=== PATIENT | male | born 1990 | race Caucasian/White ===

== ENCOUNTER 2018-12-11 14:00 | Emergency (ER) | payer MEDICARE, SELFPAY ==
[2018-12-11 14:02] VITALS: BP 118/89; PULSE 77; RESP 18; TEMP 36.7; O2SAT 95; BMI 20.7
[2018-12-11 14:15] VITALS: TEMP 36.7
--- NOTE | 2018-12-11 14:47 | ED.RN ---
talked to dr muñiz about mental health procedures and that he did not have to take off his clothes
[2018-12-11] MEDS: Ziprasidone IM 20 MG/ML VIAL IM (15:03)
[2018-12-11 15:05] LABS: Absolute Lymphocyte Count 2.28 X10^3/ul (0.83-4.51); Absolute Neutrophil Count 6.6 X10^3/uL (2.0-7.7); Anion Gap 4 (5-15); BUN 12 mg/dL (7-18); BUN/Creat Ratio 13.7 RATIO (10-20); Basophil# 0.03 X10^3/uL; Basophil% 0.3 % (0-1); Calcium,Total 8.6 mg/dL (8.5-10.1); Chloride 109 mmol/L (98-107); Creatinine, Serum 0.87 mg/dL (0.70-1.30); EST Glomerular Filtration Rate 110 mL/min (>60); Eosinophil# 0.17 X10^3/uL; Eosinophils% 1.7 % (0-5); Est Glom Filt Rate - Afr Amer 133 mL/min (>60); Glucose 98 mg/dL (74-106); Hematocrit 46.3 % (40-54); Hemoglobin 15.3 g/dl (13.0-16.5); Lymphocyte # 2.28 X10^3/ul (4.0); Lymphocyte % 23.1 % (19-41); Mean Corpuscular Hgb 31.2 pg (27.0-32.0); Mean Corpuscular Volume 94.3 fL (80-94); Mean Platelet Vol. 10.8 fl (6.2-12.0); Monocyte# 0.79 X10^3/uL; Neutrophil # 6.59 X10^3/uL (2.7-7.7); Neutrophil % 66.8 % (47-70); Platelet Count 245 K/mm3 (150-450); RBC Distribution Width CV 13.7 % (11.6-14.6); RBC Distribution Width SD 47.2 fl (35.1-43.9); Red Blood Count 4.91 M/mm3 (4.6-6.2); Sodium Level 142 mmol/L (136-145); White Blood Count 9.9 K/mm3 (4.4-11.0)
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
[2018-12-11 15:16] VITALS: RESP 14
[2018-12-11 15:17] LABS: POSITIVE COUNT NO; POSITIVE DIFFERENTIAL NO; POSITIVE MORPHOLOGY NO
[2018-12-11 16:01] LABS: Amphetamine Urine VISTA NEGATIVE (<1000 ng/mL); Barbiturate Urine VISTA POSITIVE (< 200 ng/mL); Benzodiazepine Urine VISTA NEGATIVE (< 200 ng/mL); Cocaine Urine VISTA NEGATIVE (< 300 ng/mL); Ecstacy Urine VISTA NEGATIVE (< 500 ng/mL); Methadone Urine VISTA NEGATIVE (< 300 ng/mL); PCP Urine VISTA NEGATIVE (< 25 ng/mL); THC Urine VISTA POSITIVE (< 50 ng/mL); Vista UDS pH Range 6
[2018-12-11 17:00] VITALS: RESP 16
--- NOTE | 2018-12-11 17:07 | NURSING ---
DEREK, CRISIS, AWARE. SHE HAS CHART
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
--- NOTE | 2018-12-11 17:30 | ED.RN ---
Crisis in to see pt. Pt requesting a TV, patient is cooperative and not suicidal so was moved to room 5. Room was preciously stripped for mental health prior to moving patient.
--- NOTE | 2018-12-11 17:45 | CM.ED ---
SOCIAL WORK NOTE CALL TO [facility], SPOKE WITH RN-ABIGAIL. PER ABIGAIL, PT ABLE TO RETURN TO FACILITY. ABIGAIL DOES VOICE CONCERNS WITH PT'S BEHAVIORS AND SAFETY OF STAFF AND OTHER RESIDENTS. ABIGAIL REPORTS PT DID HAVE [facility]TAKE APPOINTMENT AT [facility] IN OCTOB[facility] AND PT'S MOTHER WAS TOLD PT WOULD NOT BE ABLE TO HAVE PSYCHIATRIST APPOINTMENT FOR SEVERAL MONTHS. PER ABIGAIL, [facility] DOES NOT HAVE PSYCH ON STAFF. THIS WORKER TO CALL [facility] TO DISCUSS EXPEDITING PSYCHIATRIST APPOINTMENT. UPDATED DR. GARRETT. CECILIA CHEEK, USER EXPERIENCE DEVELOPER, HOSTESS.
--- NOTE | 2018-12-11 17:54 | ED.VISSUMM ---
- ER Visit Summary Date of Service: 12/11/18 Chief Complaint: [] History of Present Illness: The patient is a 28 M [] Physical Examination: [] Test Results: [] Emergency Department Course and Treatment: [] Treatment Plan: [] Disposition: [] Impression: [] This note was generated with Workshare dictation software. It may contain incorrect words, spelling, and punctuation that were not noted in review of the chart prior to signing ED Disposition - Plan for ED Patient: Disposition: Home or Assisted Living Diagnosis: Traumatic brain injury Instructions: Behavior Changes After Brain Injury Referrals: Janice Sims NP-C [Primary Care Provider] -
--- NOTE | 2018-12-11 17:57 | ED.DCSUM_ITS ---
- ER Visit Summary Date of Service: 12/11/18 Chief Complaint: [] History of Present Illness: The patient is a 28 M [] Physical Examination: [] Test Results: [] Emergency Department Course and Treatment: [] Treatment Plan: [] Disposition: [] Impression: [] This note was generated with [employer] dictation software. It may contain incorrect words, spelling, and punctuation that were not noted in review of the chart prior to signing ED Disposition - Plan for ED Patient: Disposition: Home or Assisted Living Diagnosis: Traumatic brain injury Instructions: Behavior Changes After Brain Injury Referrals: Janice Sims NP-C [Primary Care Provider] -
[2018-12-11 18:00] VITALS: RESP 16
--- NOTE | 2018-12-11 18:00 | CM.ED ---
SOCIAL WORK NOTE CALL TO MAURICE WITH [facility]. DISCUSSED PT'S CASE AND REQUEST FOR PSYCHIATRIST APPOINTMENT TO BE EXPEDITED. MAURICE TO CALL PSYCH SERVICES TOMORROW. REQUESTED MAURICE CALL ABIGAIL AT [facility] TOMORROW TO UPDATE. CECILIA CHEEK, INSURANCE COUNSEL, GUEST RELATIONS REPRESENTATIVE.
--- NOTE | 2018-12-11 18:25 | CM.ED ---
SOCIAL WORK NOTE CALL TO ABIGAIL AT [facility] TO UPDATE PT WILL D/C BACK TO [facility] THIS DAY. INFORMED ABIGAIL THIS WORKER SPOKE WITH MAURICE AT [facility] AND SHE WILL WORK ON MOVING UP PSYCHIATRIST APPOINTMENT. CALL TO PT'S MOTHER, KATHERYN TO UPDATE ON PLAN. KATHERYN IN AGREEMENT. UPDATED DR. GARRETT AND NURSING ON THE ABOVE. PLAN: D/C BACK TO [facility]. CECILIA CHEEK, WELDER PRODUCTION LINE ARC, WEIGHTS AND MEASURES SEALER.
--- NOTE | 2018-12-11 19:16 | ED.RN ---
ATTEMPTED TO CALL [facility] UNABLE TO REACH ANY STAFF. WILL CONTINUE TO TRY
--- NOTE | 2018-12-11 19:45 | CM.ED ---
SOCIAL WORK NOTE ATTEMPTED TO CONTACT [facility] FOR NURSE. [facility] CALLED [facility] NO ANSWER, LEFT VOICEMAIL. CALL TO PT'S MOTHER TO DISCUSS TRANSPORTATION, NO ANSWER, LEFT VOICEMAIL.
--- NOTE | 2018-12-11 19:50 | CM.ED ---
SOCIAL WORK NOTE RECEIVED CALL BACK FROM PT'S MOTHER, KATHERYN. PER KATHERYN, WILL LOOK INTO TRANSPORTATION FOR PT BACK TO FACILITY. KATHERYN REQUESTING THIS WORKER ALSO CONTACT PT'S INSURANCE TO SEE IF THEY CAN PROVIDE TRANSPORT. MOTHER REPORTS PT DOES HAVE [employer] SECONDARY INSURANCE.
[2018-12-11 20:00] VITALS: RESP 18
--- NOTE | 2018-12-11 20:00 | CM.ED ---
SOCIAL WORK NOTE CALL TO [facility] PROVIDE A RIDE. PER WORKER, PT HAS EXHAUSTED HIS TRANSPORTATION BENEFIT AND ARE UNABLE TO ASSIST WITH PT'S TRANSPORTATION NEEDS. CALL TO PT'S MOTHER, KATHERYN TO UPDATE ON THE ABOVE. NO ANSWER, LEFT MESSAGE.
--- NOTE | 2018-12-11 20:07 | CM.ED ---
SOCIAL WORK NOTE NURSING PROVIDE THIS WORKER WITH CONTACT INFORMATION FOR PT'S FRIEND, JORDI. PT REPORTS THEY WILL BE ABLE TO PROVIDE TRANSPORTATION. CALL TO JORDI, NO ANSWER, LEFT MESSAGE.
--- NOTE | 2018-12-11 20:18 | CM.ED ---
SOCIAL WORK NOTE RECEIVED CALL BACK FROM PT'S MOTHER. MOTHER STATES JORDI IS PT'S COUSIN WHO RESIDES IN [place] AND MAY BE ABLE TO ASSIST WITH TRANSPORT NEEDS. INFORMED PT'S MOTHER JORDI PHONE GOES STRAIGHT TO [employer] AND MESSAGE HAS BEEN LEFT BY THIS WORKER. AWAITING CALL BACK AT THIS TIME. PT TO DESK INQUIRING ABOUT TRANSPORTATION. UPDATED PT ON THIS WORKER'S EFFORTS TO FIND TRANSPORT BACK TO FACILITY. CHARGE NURSE REPORTS WILL PROVIDE PT WITH [facility]. [facility] HAS BEEN CALLED FOR TRANSPORT. [facility] TO ARRIVE WITHIN 2 HOURS. CECILIA CHEEK, ADVANCE SEAL DELIVERY SYSTEM MAINTAINER, EQUIPMENT MAINTENANCE TECH.
--- NOTE | 2018-12-11 23:02 | CM.ED ---
SOCIAL WORK NOTE CALL FROM PT'S MOTHER, KATHERYN INQUIRING IF PT HAS BEEN PICKED UP BY [facility]. INFORMED PT'S MOTHER STILL WAITING ON [facility] AT THIS TIME. MOTHER REQUESTING PHONE CALL ONCE [facility] ARRIVES SHE WISHES TO UPDATE [facility]. WILL UPDATE PT'S NURSE. CECILIA CHEEK, ELECTRICAL TECH, DIRECTOR SOCIAL SERVICE.
[2018-12-12 00:01] VITALS: RESP 18
--- NOTE | 2018-12-12 00:05 | ED.RN ---
rosio allen made aware patient is returning at this time,
== END 2018-12-12 00:02 | disposition home or self-care (01) ==
PROVIDERS: Emergency Provider Emergency Medicine
DX: R45.87 Impulsiveness (principal); R45.6 Violent behavior; Z87.820 Personal history of traumatic brain injury; G40.909 Epilepsy, unspecified, not intractable, without status epilepticus; G93.40 Encephalopathy, unspecified; F32.9 Major depressive disorder, single episode, unspecified; F12.21 Cannabis dependence, in remission; Z79.899 Other long term (current) drug therapy; Z72.0 Tobacco use
CPT/HCPCS: 80048; 80307; 85025; 96372; 99285; J3486

== ENCOUNTER 2018-12-15 06:11 | Emergency (ER) | payer BC, MEDICARE, SELFPAY ==
[2018-12-15 06:13] VITALS: BP 117/92; PULSE 79; RESP 18; TEMP 36.3; O2SAT 98; BMI 20.9
--- NOTE | 2018-12-15 07:10 | ED.DCSUM_ITS ---
- ER Visit Summary Date of Service: 12/15/18 Chief Complaint: [] Agitation History of Present Illness: The patient is a 28 M reported agitation. Staff sent him in because he would not take his medications and he was verbally abusive again with him this morning. This happened a few days ago. He had lab work done. He was given Geodon as he was agitated in the ER at that time. He was discharged back to the facility. He has a history of traumatic brain injury still has difficulty with communication. His mom stated he has been having insomnia for the last 2 days Physical Examination: Vital signs reviewed General: Well-nourished well-developed Head: Normocephalic atraumatic Eyes: Pupils equal round and reactive to light extraocular movements intact ENT: TMs clear no hemotympanum no trauma Neck: Nontender full range of motion Cardiovascular: Regular rate rhythm no murmurs normal S1-S2 Respiratory: No distress clear to auscultation bilaterally chest nontender Abdomen: Soft nontender nondistended normal bowel sounds no masses Back: Nontender no CVA tenderness Extremities: Nontender active range of motion ?4 extremities no trauma Skin: Normal color no trauma Neuro alert oriented. Follows commands. Chronic difficulty with vocabulary secondary to aphasia Test Results: [] Emergency Department Course and Treatment: [] Discussed with crisis. He will be evaluated again. I do not feel he needs repeat lab work. Patient in agreement. He is not agitated here. Treatment Plan: [] Disposition: [] Impression: [] This note was generated with mth sense dictation software. It may contain incorrect words, spelling, and punctuation that were not noted in review of the chart prior to signing ED Disposition - Plan for ED Patient: Referrals: Janice Sims, CUT OUT MACHINE OPERATOR-C [Primary Care Provider] -
--- NOTE | 2018-12-15 08:53 | NURSING ---
ABIGAIL, CRISIS, CALLED. SHE IS ON HER WAY OVER
--- NOTE | 2018-12-15 08:59 | NURSING ---
ABIGAIL, CRISIS, HERE
--- NOTE | 2018-12-15 10:03 | ED.DEP ---
ED Disposition - Plan for ED Patient: Instructions: Behavior Changes After Brain Injury Referrals: Janice Sims, ANUJ-C [Primary Care Provider] - Counseling,Center [GROUP OF PHYSICIANS] -
--- NOTE | 2018-12-15 10:19 | ED.RN ---
Report to Naz at [facility]. Aware pt has appt tomorrow [address] Lama at [facility].
== END 2018-12-15 10:21 | disposition home or self-care (01) ==
PROVIDERS: Emergency Provider Emergency Medicine
DX: R45.1 Restlessness and agitation (principal); Z91.14 Patient's other noncompliance with medication regimen; Z87.820 Personal history of traumatic brain injury
CPT/HCPCS: 99284

== ENCOUNTER → 2019-05-20 16:21 | Outpatient (CLI) | payer MEDICARE, BC, SELFPAY ==
[2019-05-20 16:54] LABS: Absolute Lymphocyte Count 3.35 X10^3/uL (0.83-4.51); Absolute Neutrophil Count 4.6 X10^3/uL (2.0-7.7); Basophil# 0.05 X10^3/uL; Basophil% 0.6 % (0-1); Eosinophil# 0.27 X10^3/uL; Hematocrit 46.1 % (40-54); Hemoglobin 15.6 g/dL (13.0-16.5); Lymphocyte # 3.35 X10^3/ul (4.0); Lymphocyte % 36.9 % (19-41); Mean Corp Hgb Conc 33.8 g/dL (32-36); Mean Corpuscular Hgb 31.6 pg (27.0-32.0); Mean Corpuscular Volume 93.3 fL (80-94); Mean Platelet Vol. 10.1 fl (6.2-12.0); Monocyte# 0.78 X10^3/uL; Monocyte% 8.6 % (0-10); NRBC Flagged by Analyzer 0 % (0-5); Neutrophil # 4.58 X10^3/uL (2.7-7.7); Neutrophil % 50.3 % (47-70); Platelet Count 250 K/mm3 (150-450); RBC Distribution Width CV 13.2 % (11.6-14.6); RBC Distribution Width SD 45.1 fl (35.1-43.9); Red Blood Count 4.94 M/mm3 (4.6-6.2); White Blood Count 9.1 K/mm3 (4.4-11.0)
[2019-05-20 17:20] LABS: ALB/GLOB Ratio 1.1 RATIO (0.9-2.4); AST(SGOT) 24 U/L (15-37); Alanine Aminotransfer ALT/SGPT 42 U/L (16-61); Alkaline Phosphatase 132 U/L (45-117); Anion Gap 5 (5-15); BUN 10 mg/dL (7-18); BUN/Creat Ratio 12.9 RATIO (10-20); Bilirubin, Direct 0.09 mg/dL (0.00-0.30); Calcium,Total 8.6 mg/dL (8.5-10.1); Chloride 105 mmol/L (98-107); Creatinine, Serum 0.78 mg/dL (0.70-1.30); EST Glomerular Filtration Rate 126 mL/min (>60); Est Glom Filt Rate - Afr Amer 152 mL/min (>60); Globulin 3.6 g/dL (2.2-4.2); Glucose 91 mg/dL (74-106); Potassium 3.8 mmol/L (3.5-5.1); Protein, Total 7.6 g/dL (6.4-8.2); Sodium Level 137 mmol/L (136-145)
== END ==
PROVIDERS: Referring Provider Nurse Practitioner Family; Visit Provider Nurse Practitioner Family
DX: R56.9 Unspecified convulsions (principal)
CPT/HCPCS: 36415; 80053; 80184; 82248; 85025

== ENCOUNTER → 2019-05-28 17:00 | Outpatient (CLI) | payer MEDICARE, BC, SELFPAY ==
--- NOTE | 2019-05-28 17:00 | MRI_ITS ---
STUDY: MRI BRAIN WITHOUT CONTRAST REASON FOR EXAM: Male, 28 years old. headaches left sided, h/o tbi. TECHNIQUE: Standardized multiplanar fat and water weighted pulse sequences were obtained. COMPARISON: CT dated January 10, 2018 FINDINGS: There is left frontal and parietal craniectomy. Again noted are the areas of encephalomalacia and gliosis involving left frontal, temporal, parietal and occipital lobe, consistent with prior insult. There is ex vacuo dilatation of the left lateral ventricle. Normal bilateral basal ganglia. Normal thalami. There is no extra-axial fluid accumulation. Normal flow voids within the major intracranial circulation suggesting patency by spin echo criteria. Normal sella turcica, pituitary gland, infundibular stalk, optic chiasm and hypothalamus. Normal tectal plate and pineal gland. Normal midbrain, eve and medulla. Normal cerebellum. MRI/Brain without Contrast IMPRESSION: No acute intracranial abnormality. Large Left hemispheric encephalomalacia and gliosis, consistent with prior insult. Electronically Signed: Roxanna Nguyen MD at 15:45 EDT Tel , Service support ,
== END ==
PROVIDERS: Referring Provider Nurse Practitioner Family; Visit Provider Nurse Practitioner Family
DX: R51 Headache (principal); Z86.79 Personal history of other diseases of the circulatory system
CPT/HCPCS: 70551

== ENCOUNTER → 2019-05-29 21:40 | Outpatient (CLI) | payer MEDICARE, BC, SELFPAY | PROVIDERS: Referring Provider Nurse Practitioner Family; Visit Provider Nurse Practitioner Family | DX: G47.33 Obstructive sleep apnea (adult) (pediatric) (principal) | CPT/HCPCS: 95810 ==

== ENCOUNTER 2019-07-14 13:00 | Outpatient (RCR) | payer BC, MEDICARE, SELFPAY ==
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
--- NOTE | 2019-06-16 12:29 | HP.SP.AD_ITS ---
History - History Date of Eval: 06/10/19 Medical Diagnosis (from RX): Cognitive Communication Deficit. Date of Onset of Diagnosis: 2013 Previous speech therapy: Yes Results: Off and On therapy. Patient currently has AAC device. Other Relevant Medical History/Diagnoses/Surgery: Encephalopathy, epilepsy, conduct disorder, major depressive disorder, impulse disorder. 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 Linguistic skills were evaluated using patient/family interview, skilled observation and informal evaluation through tasks completed by the patient. - Orientation Orientation: Person, Birthdate - Naming Responsive naming: Severe - Conversational Tasks Conversational Tasks: Severe Comments: Spenser was able to only say single words or choppy phrases to communicate. He did not bring his AAC device. Further assessment needed to determine abilities with AAC. - Writing Functional writing correctly: Name Comments: Spenser can only write limited single words. This is a goal of his to write more. - Judgement & Reasoning Judgement/Reasoning: Severe - Executive Function Comments Comments: Medications are completed by assisted living. 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 Communication is heavily dependent upon listener to interprete meaning. He will gesture and has limited verbal productions. Mother stated that he is able to understand everything you say to him but frequently during the evaluation he appeared confused or things had to be repeated. Plan - Plan Plan: Speech therapy is warranted for severe communication deficits. The patient has requested to address reading and writing. - Recommendations MBS: No Treatment Warranted: Yes - Frequency Frequency: 1-2x /Week Duration: 4 Weeks Visits in this POC: 8 - Prognosis Prognosis: Fair - Goals that are Established: Determination:: Goals will be added/modified as deemed necessary and appropriate. Therapy will be discontinued when results of re-evaluation indicate therapy is no longer needed or lack of progress has been documented. - Goal #1-5 Goal #1: AAC evaluation for use of current device. Goal #2: Evaluation of Reading and Writing skills with goals added at that time. Education - Patient has Indicated that the Following Identified Educational Needs: Cognitively Impaired - Patient Instruction Patient Education: Diagnosis, Treatment Plan, Goals Person Taught: Patient, Family Teaching Method: Discussion Response to teaching: Verbalize understanding
--- NOTE | 2019-07-14 09:22 | HP.SP.DC ---
ST Discharge Summary - Discharged: Discharge: Spenser Santiago is discharged from [facility] as of 07/13/19 as he has reached his insurance limit. He had his evaluation only on 06/16/19. The focus of therapy was on AAC evaluation of using his device and reading/writing. He refused to use his device even with cues. He was unable to write or read any letters except A. Over the course of 8 therapy sessions, his identification of letters did not change nor did his use of his device. He was given multiple ways for home carry over and he frequently stated that he did not do his home program. He often was frustrated and two times he stopped the session short due to his anger and frustration. He perseverated on working more, why he was living in assisted living and returning to driving. Therapy had minimal to no change due to his anger and frustration interfering with cooperation. A copy of this discharge will be sent to his referring physician.
--- NOTE | 2019-07-14 15:47 | HP.OTDCSUM ---
HP - OT D/C Summary It has been my pleasure to treat PINA AGUILAR under orders from BEENA Cabral, for the diagnosis of brain injury L hand contracted for a total of 9 visit(s). Please see the following information for a summary of their discharge status. - Objective Objective/Function: Pt stated using T-putty at home with fair understanding of why he is doing so. Pt educated on time it takes for contratures to reverse, splint is at optimal angle for his contractures. Measurements were taken to demonstrate progress to pt. PIP of L hand: RF -45/62, MF -44/76, IF -55/54. Stressed improvement on ext of digits 2 and 3 of L hand. - Goals Patient Goals: Regain Strength, Decrease Swelling/Stiffness, Improve Fine Motor Skills, Use Hand/Wrist/Arm Normally Again, Increase ROM, Be More Independent in ADLS Goal:: Pt will progress w/ L hand strength by 10# to assist with carrying shopping backs and completing functional living tasks independently. Goal:: Pt will progress w/ L PIP AROM extension RF, MF, IF by 15' to assist with donning brace for at night. Pt will progress w/ L MP AROM flexion by 10' to assist w/ functional living tasks independently by d/c from OT Goal:: Pt will be educated on L UE ROM HEP with fair undersatnding and demo 75% accuracy Goal:: Pt/caregivers will be educated on appropriate splinting, orthosis L hand as needed with good understanding and demo 100%x - Plan Plan: d/c OT services, no more insurance coverage. - D/C Information Discharge Comments: Pt has been educated on L UE HEP with handouts provided with fair understanding. Fabricated splint for L hand to increase extension of L digits. L PIP joints PROM RF -30/62, MF -35/78, IF -40/85. Pt educated on when to wear splint. Pt has been educated on using heat prior to ROM exercises. Pt no longer requries skilled OT services. Pt/ d/c from OT services secondary to insurance limit met If there are questions or concerns regarding this patient's occupational therapy, please fell free to call me at [phone]. Thank you for the referral of this patient. Sincerely, Marla Ritter
== END 2019-07-14 19:00 | disposition home or self-care (01) ==
LOC: OT 13:00
PROVIDERS: Visit Provider Nurse Practitioner Family
DX: R41.841 Cognitive communication deficit (principal); M24.542 Contracture, left hand
CPT/HCPCS: 92507; 92523; 97110; 97140; 97165; 97166; 97530; 97763

== ENCOUNTER 2020-02-17 09:00 | Outpatient (RCR) | payer BC, MEDICARE, SELFPAY ==
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
--- NOTE | 2019-10-27 12:33 | HP.SP.AD_ITS ---
History - History Date of Eval: 10/27/19 Medical Diagnosis (from RX): TBI, Dysarthria Date of Onset of Diagnosis: 2013 Previous speech therapy: Yes Results: Limited progress due to limited sessions based on insurance coverage. Other Relevant Medical History/Diagnoses/Surgery: Encephalopathy, epilepsy, conduct disorder, major depressive disorder, impulse disorder. 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 Patient Allergies - Allergies Allergies haloperidol [From Haldol] Allergy (Verified 12/11/18 14:01) Unknown lorazepam [From Ativan] Allergy (Verified 12/11/18 14:01) Unknown Objective Cog/Ling/Com - Test Administered Oxmgrmazg-Pzyaoltruv-Zkjygwqqlmekn Assessment Administered: Yes Kdjnpbudv-Xnimoroydv-Imfkpfuytydbz Assessment: Cognitive ? Linguistic skills were evaluated using patient/family interview, skilled observation and informal evaluation through tasks completed by the patient. - Orientation Orientation: Person, Birthdate - Reading Picture-Word Matching Picture-Word matching: Severe - Reading Comprehension Words: Severe Phrases: Severe - Oral Reading Words: Severe - Writing Functional writing correctly: Name Words: Severe Cognitive Linguistic Comments - Comments Letters Spenser would like a focus of therapy on reading/writing letters for functional communication. He can copy a letter but can not identify letters in a field or write upon demand. Other Impressions - Comments AAC -: Spenser has an AAC device with touch chat program. He has very limited use of it as he can't read the words. It does have pictures but he doesn't use it currently in any functional way. The device has minimal personalized information. Plan - Plan Plan: Speech therapy is warranted for significant deficits in communication. Spenser struggles to communciate basic information about himself. - Recommendations Treatment Warranted: Yes - Frequency Frequency: 1x/Week Duration: 6 Months Visits in this POC: 24 - Prognosis Prognosis: Good - Goals that are Established: Determination:: Goals will be added/modified as deemed necessary and appropriate. Therapy will be discontinued when results of re-evaluation indicate therapy is no longer needed or lack of progress has been documented. - Goal #1-5 Goal #1: Spenser will identify alphabet letters on 4/5 trials on 2/3 consecutive sessions to aim for functional communication towards simple spellling words on his AAC device. Goal #2: Spenser will use his AAC device to communicate wants and needs on 4/5 trials on 2/3 consecutive sessions to be able to communicate preferred objects as well as communicate desired wants and thoughts as well as medical needs. Education - Patient has Indicated that the Following Identified Educational Needs: Language Barrier, Cognitively Impaired, Hearing/Vision/Speech Impaired - Patient Instruction Patient Education: Diagnosis, Treatment Plan Person Taught: Patient Teaching Method: Discussion Response to teaching: Reinforcement needed, Has Prior Knowledge
--- NOTE | 2019-11-23 11:04 | HP.OTREVAL ---
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 Please see the progress note below for an update on the occupational therapy plan of care! Subjective: Arrived and noted through aphasia maybe mild progression. Splint logs returned and he has been wearing both splints over the last two days. Objective/Function: Reassessment complete don this date of 11/23/19 and results as follows: ROM: MCP. L : 2nd -23-0-57 (improved) , 3rd -20-0-66 , 4th -21-0-65 (improved) ,5th 0-63. PIP. L : 2nd 66-95 3rd 50-75 , 4th 55-59 ,5th 0-69. DIP. L : 2nd 0-38 3rd -5-0 , 4th 0-0 ,5th -17-0-44. Strength: - green prize packer: R 86, L 23. - lateral : R 16 ,L 9. - tripod : R 15, L 10. Increased difficulty follow direction with verbal prompts. Spenser has made some increased progression with ROM and strength measurements as indicated. PIP and DIP some little improvements. Plan Frequency: 2x /Week Duration: 2 Weeks Visits in this POC: 4 Plan: He has shown some signs of improvement and will continue POC for 2x weekly appointments for the next 2x weeks for total 4 more appointments to promote increased ROM and strength needed to promote normal use of left hand for functional and ADL/IADls based activities by d/c. He has shown some signs of improvement and with continued OT further ROM and strength is to be promoted. Goals - Goals Goal:: Sepnser to increase L hand strength by 10 lbs to promote increased strength needed to proote formation of composite fist 4/5 trials 808% of the time by d/c. Goal:: Spenser to exhibit ability to complete composite fist within 4 cm from palm to finger tip to promote increased ROM of fingers and ability to complete grapsing tasks by d/c. Goal:: Spenser to exhibit increased ability to complete joint protection strategies of L hand for ADL/AIDls to promote increased ability and QOL by d/c. Goal:: Spenser to increased bilateral hand use with L hand to promote increased ability for use of composite fist 4/5 trials 80% fo the time by d/c. Goal:: Spenser to be SBA to promote completion of HEP with help and carry over from [facility] staff as needed to promote ROM and strength of L hand for ADL/IADls. Anticipated Interventions Anticipated Interventions: Strengthening, Modalities, Orthoses, Joint Protection/Energy Conservation, Ergonomic Education, Fine Motor Coord/Edinson, ADL Training, Caregiver Training, Home Program Please do not hesitate to contact me at [phone] by phone or if you have questions or concerns regarding this new plan of care! Sincerely, Linette Glez, OTR/L
--- NOTE | 2020-02-17 12:33 | HP.SP.DC ---
ST Discharge Summary - Discharged: Discharge: Spenser Santiago is discharged from [facility] as of February 17, 2020. His initial evaluation was on October and he attended a total of 13 visits after his evaluation. He had excellent attendance but home carry over varied. His diagnosis was TBI and the focus of therapy was on identification of letters/reading and use of his AAC device. He did not make any progress on his letter identification skills. He is able to read some single words but reading is not functional at this time. He can use his AAC device with limited ability. He can use verbal speech for some tasks but was encouraged to use his device to supplement what he was unable to verbalize. He needed maximal cues to use the device at all attempts. 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 When asked if he would use it he intermittently stated no. His mother was given multiple ideas for home activities including podcasts, screen readers so he can listen to Facebook posts and other activities to help him keep busy. Spenser is discharged from speech therapy at this time due to lack of progress. A copy of this plan of care will be sent to his referring physician.
== END 2020-02-17 19:00 | disposition home or self-care (01) ==
LOC: SP 09:00
PROVIDERS: Referring Provider Nurse Practitioner Family; Visit Provider Nurse Practitioner Family
DX: M24.542 Contracture, left hand (principal); R47.1 Dysarthria and anarthria
CPT/HCPCS: 92507; 92523; 97110; 97166; 97168; 97530; 97760

== ENCOUNTER 2024-12-07 12:08 | Outpatient (RCR) | payer MEDICARE, MEDICAID, SELFPAY ==
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
--- NOTE | 2025-02-23 11:11 | HP.SP.DC ---
ST Discharge Summary Discharged: Discharge: Spenser Santiago is discharged from [facility] as of February 23, 2025. He was evaluated on November with therapy recommended weekly. Insurance visits were obtained and schedulers left messages for his mother to schedule. No further visits were scheduled and patient is discharged. Thank you for allowing me to participate in the care of this patient.
== END 2024-12-07 19:00 | disposition home or self-care (01) ==
LOC: SP 12:08
PROVIDERS: PCP Nurse Practitioner Adult Health; Referring Provider Nurse Practitioner Adult Health; Visit Provider Nurse Practitioner Adult Health
DX: F80.9 Developmental disorder of speech and language, unspecified (principal)
CPT/HCPCS: 92523

== ENCOUNTER → 2025-06-29 | Outpatient (CLI) | payer MEDICARE, MEDICAID, SELFPAY ==
[2025-06-29 17:45] LABS: AST(SGOT) 50 U/L (<=37); Alanine Aminotransfer ALT/SGPT 80 U/L (<=46); Albumin, Serum 4.5 g/dL (3.5-5.0); Alkaline Phosphatase 106 U/L (40-129); Anion Gap 16 (5-15); BUN 14 mg/dL (4-19); BUN/Creat Ratio 17.3 RATIO (10-20); Calcium,Total 9.0 mg/dL (7.6-11.0); Carbon Dioxide 20.4 mmol/L (21.0-32.0); Chloride 105 mmol/L (98-108); Globulin 2.6 g/dL (2.2-4.2); Glucose 80 mg/dL (70-99); Potassium 4.0 mmol/L (3.3-5.1)
[2025-06-29 18:05] LABS: Ammonia 57.9 umol/L (16-60)
[2025-06-29 18:07] LABS: Hematocrit 42.1 % (40-54); Hemoglobin 14.3 g/dL (13.0-16.5); Immature Granulocytes Count 0.020 X10^3/uL (0.0-0.0); Mean Corp Hgb Conc 34.0 g/dL (32-36); Mean Corpuscular Volume 92.5 fL (80-94); Mean Platelet Vol. 11.6 fl (6.2-12.0); NRBC Flagged by Analyzer 0 % (0-5); Platelet Count 297 K/mm3 (150-450); RBC Distribution Width CV 12.3 % (11.6-14.6); RBC Distribution Width SD 42.2 fl (35.1-43.9); Red Blood Count 4.55 M/mm3 (4.6-6.2); White Blood Count 7.2 K/mm3 (4.4-11.0)
[2025-07-04 06:38] LABS: KEPPRA (LEVETIRACETAM) 11.4 ug/mL (10.0-40.0); Trileptal-Oxcarbazepine 17 ug/mL (10-35)
== END | disposition home or self-care (01) ==
LOC: MTLAB 11:25
PROVIDERS: PCP Nurse Practitioner Adult Health
DX: G40.909 Epilepsy, unspecified, not intractable, without status epilepticus (principal)
CPT/HCPCS: 36415; 80053; 80177; 80184; 82140; 82542; 85025